=== PATIENT | male | born 1935 | race Caucasian/White ===

== ENCOUNTER 2017-11-10 09:05 | Outpatient (CLI) | payer MEDICARE, OTHER ==
[2017-11-10] VITALS (19 sets, daily range): BP systolic 150–184; BP diastolic 81–110
== END 2017-11-10 23:59 | disposition home or self-care (01) ==
LOC: CARD DIAG 09:05
PROVIDERS: ATTEND Internal Medicine Interventional Cardiology
DX: R42 Dizziness and giddiness (principal); Z87.891 Personal history of nicotine dependence
CPT/HCPCS: 93660